=== PATIENT | female | born 1960 | race Caucasian/White ===

== ENCOUNTER 2018-06-18 09:26 | Emergency (ER) | payer MEDICAID ==
[2018-06-18 12:19] LABS: ADD MAN DIFF? NO
[2018-06-18 12:27] LABS: WHITE BLOOD COUNT 13.1 10^3/ul (4.8-10.8)
[2018-06-18 12:27] LABS: BASOPHIL # 0.1 10^3/ul (0.0-0.1); BASOPHILS % 0.7 % (0.0-2.0); EOSINOPHILS # 0.1 10^3/ul (0.0-0.5); EOSINOPHILS % 0.7 % (0.0-7.0); HEMATOCRIT 39.1 % (37.0-47.0); HEMOGLOBIN 13.1 g/dl (12.0-16.0); LYMPHOCYTES # 1.9 10^3/ul (0.8-2.9); LYMPHOCYTES % 14.5 % (15.0-51.0); MEAN CORPUSCULAR HEMOGLOBIN 29.6 pg (29.0-33.0); MEAN CORPUSCULAR HGB CONC 33.5 g/dl (32.0-37.0); MEAN CORPUSCULAR VOLUME 88.3 fl (82.0-101.0); MEAN PLATELET VOLUME 11.1 fl (7.4-10.4); MONOCYTE # 1.1 10^3/ul (0.3-0.9); MONOCYTES % 8.3 % (0.0-11.0); NEUTROPHIL # 9.9 10^3/ul (1.6-7.5); NEUTROPHILS % 75.4 % (39.0-77.0); PLATELET COUNT 232 10^3/UL (140-415); RED BLOOD COUNT 4.43 10^6/ul (4.20-5.40); RED CELL DISTRIBUTION WIDTH 13.2 % (11.5-14.5)
[2018-06-18 12:43] LABS: ALANINE AMINOTRANSFERASE 34 IU/L (13-69); ALBUMIN 3.9 g/dl (3.3-4.9); ALBUMIN/GLOBULIN RATIO 1.08; ALKALINE PHOSPHATASE 167 IU/L (42-121); ANION GAP 13 (5-13); ASPARTATE AMINO TRANSFERASE 42 IU/L (15-46); BILIRUBIN,INDIRECT 1.7 mg/dl (0-1.1); BILIRUBIN,TOTAL 1.7 mg/dl (0.2-1.3); BLOOD UREA NITROGEN 20 mg/dl (7-20); CARBON DIOXIDE 22 mmol/L (21-31); CHLORIDE 99 mmol/L (97-110); Estimated GFR 46 mL/min (>60); GLUCOSE 122 mg/dl (70-220); INR 1.18; POTASSIUM 4.7 mmol/L (3.5-5.1); PROTIME 15.1 Sec (11.9-14.9); PT RATIO 1.2; SODIUM 134 mmol/L (135-144); TOTAL PROTEIN 7.5 g/dl (6.1-8.1)
[2018-06-18 12:44] LABS: PARTIAL THROMBOPLASTIN TIME 35.7 Sec (23.0-35.0)
[2018-06-18] MEDS: LIDOCAINE 1% (MDV) 20 ML INJ (17:13)
== END 2018-06-18 17:23 | disposition home or self-care (01) ==
LOC: E/R 09:26
DX: K70.31 Alcoholic cirrhosis of liver with ascites (principal); I10 Essential (primary) hypertension
CPT/HCPCS: 80053; 81025; 85025; 85610; 85730; 99285-25

== ENCOUNTER 2018-06-25 07:06 | Day surgery (SDC) | payer MEDICAID ==
[2018-06-25] MEDS: LIDOCAINE 1% (MPF) 5 ML VIAL (09:47)
== END 2018-06-25 10:32 | disposition home or self-care (01) ==
LOC: RAD 07:06 → SDS 07:06 → RAD 10:32
DX: K70.31 Alcoholic cirrhosis of liver with ascites (principal)
CPT/HCPCS: 49083

== ENCOUNTER 2018-07-05 12:12 | Day surgery (SDC) | payer MEDICAID ==
[2018-07-05] MEDS: LIDOCAINE 1% (MPF) 5 ML VIAL (14:55)
== END 2018-07-05 15:18 | disposition home or self-care (01) ==
LOC: SDS 12:12
DX: R18.8 Other ascites (principal)
CPT/HCPCS: 49083

== ENCOUNTER 2018-07-15 11:43 | Day surgery (SDC) | payer MEDICAID ==
[2018-07-15] MEDS: LIDOCAINE 1% (MPF) 5 ML VIAL (16:48)
== END 2018-07-15 17:04 | disposition home or self-care (01) ==
LOC: SDS 11:43
DX: K70.31 Alcoholic cirrhosis of liver with ascites (principal)
CPT/HCPCS: 49083

== ENCOUNTER 2018-07-22 07:15 | Day surgery (SDC) | payer MEDICAID ==
[2018-07-22] MEDS: LIDOCAINE 1% (MPF) 5 ML VIAL (13:02)
== END 2018-07-22 11:00 | disposition home or self-care (01) ==
LOC: RAD 07:15 → SDS 07:15 → RAD 11:00
DX: K70.31 Alcoholic cirrhosis of liver with ascites (principal)
CPT/HCPCS: 49083

== ENCOUNTER 2018-07-29 06:55 | Day surgery (SDC) | payer MEDICAID ==
[2018-07-29] MEDS: LIDOCAINE 1% (MPF) 5 ML VIAL (09:28)
== END 2018-07-29 10:10 | disposition home or self-care (01) ==
LOC: SDS 06:55
DX: K70.31 Alcoholic cirrhosis of liver with ascites (principal)
CPT/HCPCS: 49083

== ENCOUNTER 2018-08-05 09:28 | Day surgery (SDC) | payer MEDICAID ==
[2018-08-05] MEDS: LIDOCAINE 1% (MPF) 5 ML VIAL (12:54)
== END 2018-08-05 13:00 | disposition home or self-care (01) ==
LOC: SDS 09:28
DX: K70.31 Alcoholic cirrhosis of liver with ascites (principal)
CPT/HCPCS: 49083

== ENCOUNTER 2018-08-12 11:34 | Day surgery (SDC) | payer MEDICAID ==
[2018-08-12] MEDS: LIDOCAINE 1% (MPF) 5 ML VIAL (14:58)
== END 2018-08-12 19:00 | disposition home or self-care (01) ==
LOC: SDS 11:34
DX: R18.8 Other ascites (principal)
CPT/HCPCS: 49083

== ENCOUNTER 2018-08-23 10:54 | Day surgery (SDC) | payer MEDICAID ==
[2018-08-23] MEDS: LIDOCAINE 1% (MPF) 5 ML VIAL (13:43)
== END 2018-08-23 13:57 | disposition home or self-care (01) ==
LOC: SDS 10:54
DX: R18.8 Other ascites (principal)
CPT/HCPCS: 49083

== ENCOUNTER 2018-09-02 10:41 | Day surgery (SDC) | payer MEDICAID ==
[2018-09-02] MEDS: LIDOCAINE 1% (MPF) 5 ML VIAL (13:56)
== END 2018-09-02 14:08 | disposition home or self-care (01) ==
LOC: SDS 10:41
DX: K70.31 Alcoholic cirrhosis of liver with ascites (principal); I10 Essential (primary) hypertension
CPT/HCPCS: 49083

== ENCOUNTER → 2018-09-10 | Day surgery (SDC) | payer MEDICAID ==
[2018-09-10] MEDS: LIDOCAINE 1% (MPF) 5 ML VIAL (15:13)
== END | disposition home or self-care (01) ==
LOC: SDS 10:27
DX: K70.31 Alcoholic cirrhosis of liver with ascites (principal); I10 Essential (primary) hypertension
CPT/HCPCS: 49083

== ENCOUNTER 2018-09-21 08:27 | Day surgery (SDC) | payer MEDICAID ==
[2018-09-21] MEDS: LIDOCAINE 1% (MPF) 5 ML VIAL (11:52)
== END 2018-09-21 12:28 | disposition home or self-care (01) ==
LOC: SDS 08:27
DX: K70.31 Alcoholic cirrhosis of liver with ascites (principal)
CPT/HCPCS: 49083

== ENCOUNTER 2018-10-07 08:34 | Day surgery (SDC) | payer MEDICAID ==
[2018-10-07] MEDS: LIDOCAINE 1% (MPF) 5 ML VIAL (11:16)
== END 2018-10-07 11:23 | disposition home or self-care (01) ==
LOC: RAD 08:34 → SDS 08:34 → RAD 11:23
DX: K70.31 Alcoholic cirrhosis of liver with ascites (principal)
CPT/HCPCS: 49083

== ENCOUNTER 2018-10-14 06:25 | Day surgery (SDC) | payer MEDICAID ==
[2018-10-14] MEDS: LIDOCAINE 1% (MPF) 5 ML VIAL (09:49)
== END 2018-10-14 10:15 | disposition home or self-care (01) ==
LOC: SDS 06:25
DX: K70.31 Alcoholic cirrhosis of liver with ascites (principal); F10.21 Alcohol dependence, in remission
CPT/HCPCS: 49083

== ENCOUNTER 2018-10-23 07:45 | Emergency (ER) | payer MEDICAID ==
[2018-10-23] MEDS: LIDOCAINE 1% (MPF) 5 ML VIAL (16:32)
== END 2018-10-23 12:30 | disposition home or self-care (01) ==
LOC: E/R 07:45
DX: K74.60 Unspecified cirrhosis of liver (principal); I10 Essential (primary) hypertension
CPT/HCPCS: 49083; 99285-25

== ENCOUNTER 2018-11-01 06:43 | Day surgery (SDC) | payer MEDICAID ==
[2018-11-01 09:34] LABS: ADD MAN DIFF? NO
[2018-11-01 09:35] LABS: WHITE BLOOD COUNT 8.9 10^3/ul (4.8-10.8)
[2018-11-01 09:35] LABS: BASOPHIL # 0.1 10^3/ul (0.0-0.1); BASOPHILS % 0.8 % (0.0-2.0); EOSINOPHILS # 0.2 10^3/ul (0.0-0.5); EOSINOPHILS % 2.1 % (0.0-7.0); HEMATOCRIT 39.1 % (37.0-47.0); HEMOGLOBIN 12.8 g/dl (12.0-16.0); LYMPHOCYTES # 1.9 10^3/ul (0.8-2.9); LYMPHOCYTES % 20.8 % (15.0-51.0); MEAN CORPUSCULAR HEMOGLOBIN 28.9 pg (29.0-33.0); MEAN CORPUSCULAR HGB CONC 32.7 g/dl (32.0-37.0); MEAN CORPUSCULAR VOLUME 88.3 fl (82.0-101.0); MEAN PLATELET VOLUME 9.9 fl (7.4-10.4); MONOCYTE # 0.8 10^3/ul (0.3-0.9); PLATELET COUNT 193 10^3/UL (140-415); RED BLOOD COUNT 4.43 10^6/ul (4.20-5.40); RED CELL DISTRIBUTION WIDTH 14.2 % (11.5-14.5)
[2018-11-01 09:56] LABS: INR 1.15; PROTIME 14.8 Sec (11.9-14.9); PT RATIO 1.2
[2018-11-01] MEDS: LIDOCAINE 1% (MPF) 5 ML VIAL (11:39)
== END 2018-11-01 12:13 | disposition home or self-care (01) ==
LOC: SDS 06:43
DX: K70.31 Alcoholic cirrhosis of liver with ascites (principal)
CPT/HCPCS: 49083; 85025; 85610

== ENCOUNTER 2018-11-08 07:35 | Day surgery (SDC) | payer MEDICAID ==
[2018-11-08] MEDS: LIDOCAINE 1% (MPF) 5 ML VIAL (08:44)
== END 2018-11-08 09:00 | disposition home or self-care (01) ==
LOC: RAD 07:35 → SDS 07:35 → RAD 09:00
DX: K74.60 Unspecified cirrhosis of liver (principal)
CPT/HCPCS: 49083